=== PATIENT | male | born 1975 ===

== ENCOUNTER 2018-04-28 07:25 | Emergency (ER) | payer BC ==
[2018-04-28 07:32] VITALS: BP 120/66; PULSE 93; RESP 18; TEMP 97; O2SAT 98; BMI 28.1
[2018-04-28] MEDS ORDERED: Tdap Vaccine 0.5 ml Vial (10-64 yrs) IM ONE ×2 (07:50→07:55)
[2018-04-28] MEDS ORDERED: LIDOCAINE 2% 10ML 20 MG/ML VIAL IJ STA (07:50)
[2018-04-28] MEDS ORDERED: Lidocaine 2% Inj (20ml) ONE (07:56)
--- NOTE | 2018-04-28 08:10 | ED PDOC ---
Upper Extremity Pain/Injury Time Seen by Provider: 04/28/18 07:47 Chief Complaint (Nursing): Abnormal Skin Integrity Chief Complaint (Provider): Abnormal Skin Integrity History Per: Patient History/Exam Limitations: no limitations Onset/Duration Of Symptoms: Sudden Onset Current Symptoms Are (Timing): Still Present Additional Complaint(s): 43 year old male, right-hand dominant with pmHx of pre-diabetes, presents to ED for an evaluation of left hand pain status post sustaining laceration to base of left thumb. Patient reports he accidentally injured himself while using a box- cutter at work prior to arrival. He denies any numbness or weakness to thumb or hand. Patient last update of tetanus is unknown. PCP: Dr. Dakotah Preston in [place], [place] Past Medical History Reviewed: Historical Data, Nursing Documentation, Vital Signs Vital Signs: Last Vital Signs Temp 97 F L 04/28/18 07:31 Pulse 93 H 04/28/18 07:31 Resp 18 04/28/18 07:31 BP 120/66 04/28/18 07:31 Pulse Ox 98 04/28/18 07:31 - Medical History PMH: Diabetes (controlled with diet) - Family History Family History: States: Diabetes - Social History Current smoker - smoking cessation education provided: Yes (ciagr but no cigarettes) Alcohol: None Drugs: Denies - Home Medications Home Medications: Ambulatory Orders Medication Instructions Recorded Cephalexin [cephalexin] 500 mg PO BID #10 cap 04/28/18 - Allergies Allergies/Adverse Reactions: Allergies Allergy/AdvReac Type Severity Reaction Status Date / Time No Known Allergies Allergy Verified 04/28/18 07:44 Review of Systems ROS Statement: Except As Marked, All Systems Reviewed And Found Negative Musculoskeletal: Positive for: Hand Pain (left thumb laceration) Neurological: Negative for: Weakness (thumb or hand), Numbness (thumb or hand) Physical Exam - Reviewed Nursing Documentation Reviewed: Yes - Physical Exam Appears: Positive for: Well, Non-toxic, No Acute Distress Pulses-Radial (L): 2+ Extremity: Positive for: Normal ROM (left wrist and digits; sensation intact), Capillary Refill (< 2 seconds to left hand), Other (4cm laceration to left thenar eminence through dermis. Muscle layer intact with minimal bleed) - ECG O2 Sat by Pulse Oximetry: 98 (RA) Pulse Ox Interpretation: Normal Medical Decision Making Medical Decision Making: Time: 746 Initial Plan: Pain control with additional tetanus initiated. Would exploration to R/O foreign body with suture repair. * Adacel 0.5ml IM * Tylenol 650mg PO * Xylocaine 2% 5mg IJ * Accucheck Time: 806 --Suture repair of left thenar eminence (see procedure note). Time: 819 --Upon provider reevaluation, patient is medically stable and requires no further treatment in the ED at this time. Given laceration to left hand, patient will be covered with prophylactic antibiotics with wound care instructions given. Provider advised patient to have sutures removed in 7 days via PCP, urgent care, or return to ED if necessary. Counseling was provided and all questions were answered regarding diagnosis. There is agreement to discharge plan. Return if symptoms persist or worsen. Clinical Impression: Laceration of thumb Scribe Attestation: Documented by Ivonne Mojica, acting as a scribe for Julito Armas III, DO. Provider Scribe Attestation: All medical record entries made by the Scribe were at my direction and personally dictated by me. I have reviewed the chart and agree that the record accurately reflects my personal performance of the history, physical exam, medical decision making, and the department course for this patient. I have also personally directed, reviewed, and agree with the discharge instructions and disposition. Procedures - Time-Out Type of Procedure: laceration repair Site of Procedure: left thenar eminence Correct Patient: Yes Correct Procedure: Yes Correct Site Marked: Yes X-Ray Marked: No Physician Name: Pawel Emmanuel Laceration/Wound Repair Left Hand Wound Length (cm): 4 Wound's Depth, Shape: superficial Wound Explored: clean Irrigated w/ Saline (ccs): 200 Volume Anesthetic (ccs): 6 (2% Lidocaine) Wound Debrided: minimal Wound Repaired With: Sutures Suture Size/Type: 3:0, proline Number of Sutures: 5 (interrupted) Layer Closure?: Yes Wound Complexity: Simple Progress: Time: 806 --Verbal consent obtained from patient. --Good wound margin proximate. Cleansed with peroxide. --Patient tolerated procedure well without complications. Disposition - Clinical Impression Clinical Impression: Laceration of thumb - Patient ED Disposition Is Patient to be Admitted: No Counseled Patient/Family Regarding: Diagnosis, Need For Followup - Disposition Referrals: Alton Coffman MD [Staff Provider] - Disposition: Routine/Home Disposition Time: 08:15 Condition: STABLE Additional Instructions: Wound care as directed- wear splint for 3 days, then warm soapy water 2x daily, bacitracin to wound 2x daily, take oral antibiotic twice daily for 5 days. Have sutures removed in 7 days via your doctor, urgent care, or return to ER if necessary. Prescriptions: Cephalexin [cephalexin] 500 mg PO BID #10 cap Instructions: Laceration Repair With Stitches (DC) Forms: [employer] ([place])
== END 2018-04-28 08:58 | disposition home or self-care (01) ==
LOC: H.ER 07:25
DX: S61.412A Laceration without foreign body of left hand, initial encounter (principal); W26.0XXA Contact with knife, initial encounter; Y99.0 Civilian activity done for income or pay; R73.03 Prediabetes